=== PATIENT | male | born 1990 | race Native Hawaiian/Other Pacific Islander ===

== ENCOUNTER 2018-07-04 08:50 | Inpatient (IN) ==
[2018-07-04] MEDS ORDERED: Morphine Inj 4 MG/ML Vial IV.PUSH ONE (09:12)
--- NOTE | 2018-07-04 09:17 | ED ---
HPI General Chief complaint: Abdominal Pain Stated complaint: abd pain Time Seen by Provider: 07/04/18 09:09 Source: patient Mode of arrival: ambulatory Limitations: no limitations History of Present Illness HPI narrative: 27yo M with no PMH presents to the ED with c/o right lower abdominal pain since yesterday. Said pain was constant and gradually worsened. Pain is nonradiating and about 7 to 8 out of 10 in severity. Difficult to describe. Denies any fever, chest pain, sob, n/v, dysuria, hematuria, testicular pain, penile discharge or rash, focal weakness or numbness. Denies any history of surgery. Related Data Home Medications Medication Instructions Recorded Confirmed No Known Home Medications 07/04/18 07/04/18 Allergies Allergy/AdvReac Type Severity Reaction Status Date / Time No Known Allergies Allergy Unverified 07/04/18 09:09 Review of Systems ROS: all other systems reviewed are negative [facility] Medical History Medical History Patient denies medical problems (Acute) Surgical History Surgical History No history of previous surgery (Acute) Social History Social History Substance History: No History of Abuse Second Hand Smoke Exposure: Yes Smoking Status: Current every day smoker Tobacco Type: Cigarettes How Often Do You Have a Drink Containing Alcohol: 2 to 4 times a month Recent Travel in [facility] within the Last 8 Weeks: No Recent Out of Country Travel within the Last 8 Weeks: No Immunization History Tetanus Immunization: Unsure Hx Influenza Vaccine This Season: No Exam Narrative Exam Narrative: GENERAL: 27yo M in mild distress. SKIN: Focused skin assessment warm/dry. HEAD: Atraumatic. Normocephalic. NECK: Trachea midline. No JVD. CARDIOVASCULAR: Regular rate and rhythm. No murmur appreciated. RESPIRATORY: No accessory muscle use. Clear to auscultation. Breath sounds equal bilaterally. GASTROINTESTINAL: Abdomen soft, +TTP RLQ. No rebound tenderness or guarding. MUSCULOSKELETAL: No obvious deformities. No clubbing. No cyanosis. No edema. NEUROLOGICAL: Awake and alert. No obvious cranial nerve deficits. Motor grossly within normal limits. Normal speech. PSYCHIATRIC: Appropriate mood and affect; insight and judgment normal. Course Initial Documented Vital Signs Temperature 98.0 F 07/04/18 08:56 Pulse Rate 76 07/04/18 08:56 Respiratory Rate 20 07/04/18 08:56 Blood Pressure 139/86 07/04/18 08:56 Pulse Oximetry 99 07/04/18 08:56 Last Documented Vital Signs Temperature 98.0 F 07/04/18 08:56 Pulse Rate 76 07/04/18 08:56 Respiratory Rate 20 07/04/18 08:56 Blood Pressure 139/86 07/04/18 08:56 Pulse Oximetry 99 07/04/18 08:56 Medical Decision Making MDM Narrative Medical decision making narrative: 27yo M here with RLQ pain since yesterday. Labs reviewed, no leukocytosis. H/H normal. CMP unremarkable. UA showed WBC 1. Culture not indicated. CT a/p showed dilated fluid filled appendix as well as 9mm calcified obstructing appendicolith consistent withe appendicitis. No periappendiceal abscess is noted. Pt given morphine and pain has resolved. Pt has been NPO. Discussed with Dr. Topete who will come evaluate patient. Pt given zosyn. Medical Screen Exam Complete: Yes Emergency Medical Condition: Yes Differential Diagnosis Differential Diagnosis: Acute appendicitis vs. colitis vs. nephrolithiasis Lab Data Result diagrams: 07/04/18 09:20 07/04/18 09:20 Lab Results 07/04/18 07/04/18 07/04/18 Range/Units 09:20 09:20 09:20 WBC 9.0 (4.0-11.0) th/mm3 RBC 5.42 (4.50-5.90) mil/mm3 Hgb 15.5 (13.0-17.0) gm/dL Hct 44.3 (39.0-51.0) % MCV 81.6 (80.0-100.0) fL MCH 28.5 (27.0-34.0) pg MCHC 34.9 (32.0-36.0) % RDW 12.9 (11.6-17.2) % Plt Count 177 (150-450) th/mm3 MPV 9.6 (7.0-11.0) fL Prelim Diff (Auto) Slide review pending Neut % (Auto) 74.5 H (16.0-70.0) % Lymph % (Auto) 13.0 (9.0-44.0) % Grand % (Auto) 9.1 H (0.0-8.0) % Eos % (Auto) 3.1 (0.0-4.0) % Baso % (Auto) 0.3 (0.0-2.0) % Neut # (Auto) 6.7 (1.8-7.7) th/mm3 Lymph # (Auto) 1.2 (1.0-4.8) th/mm3 Grand # (Auto) 0.8 (0.0-0.9) th/mm3 Eos # (Auto) 0.3 (0.0-0.4) th/mm3 Baso # (Auto) 0.0 (0.0-0.2) th/mm3 WBC Differential . Diff Scan Auto diff confirmed Differential Comment . PT 11.4 (9.8-11.6) sec INR 1.1 Ratio APTT 26.7 (24.3-30.1) sec Sodium 139 (136-145) meq/L Potassium 3.8 (3.5-5.1) meq/L Chloride 104 (98-107) meq/L Carbon Dioxide 30.1 (21.0-32.0) meq/L Anion Gap 5 (5-15) meq/L BUN 11 (7-18) mg/dL Creatinine 0.93 (0.60-1.30) mg/dL Estimated GFR Greater than 89 (>89) mL/min Random Glucose 93 (74-106) mg/dL Calcium 9.2 (8.5-10.1) mg/dL Total Bilirubin 0.9 (0.2-1.0) mg/dL AST 17 (15-37) U/L ALT 26 (12-78) U/L Alkaline Phosphatase 78 (45-117) U/L Total Protein 7.7 (6.4-8.2) g/dL Albumin 4.0 (3.4-5.0) g/dL Lipase 116 (73-393) U/L Urine Color (Yellw/Straw) Urine Clarity (Clear) Urine pH (5.0-8.5) Ur Specific [place] (1.002-1.035) Urine Protein (Neg-Trace) mg/dL Urine Glucose (UA) (Negative) mg/dL Urine Ketones (Negative) mg/dL Urine Occult Blood (Negative) Urine Nitrate (Negative) Urine Bilirubin (Negative) Urine Urobilinogen (Less than 2) mg/dL Ur Leukocyte Esterase (Negative) Urine RBC (0-3) /hpf Urine WBC (0-5) /hpf Urine Bacteria (None) /hpf Urine Mucus (Occasional) /lpf Micro UA Comment Ur Microscopic Review Urine Culture Comments Blood Type Blood Type Recheck Antibody Screen 07/04/18 07/04/18 Range/Units 09:20 12:10 WBC (4.0-11.0) th/mm3 RBC (4.50-5.90) mil/mm3 Hgb (13.0-17.0) gm/dL Hct (39.0-51.0) % MCV (80.0-100.0) fL MCH (27.0-34.0) pg MCHC (32.0-36.0) % RDW (11.6-17.2) % Plt Count (150-450) th/mm3 MPV (7.0-11.0) fL Prelim Diff (Auto) Neut % (Auto) (16.0-70.0) % Lymph % (Auto) (9.0-44.0) % Grand % (Auto) (0.0-8.0) % Eos % (Auto) (0.0-4.0) % Baso % (Auto) (0.0-2.0) % Neut # (Auto) (1.8-7.7) th/mm3 Lymph # (Auto) (1.0-4.8) th/mm3 Grand # (Auto) (0.0-0.9) th/mm3 Eos # (Auto) (0.0-0.4) th/mm3 Baso # (Auto) (0.0-0.2) th/mm3 WBC Differential Diff Scan Differential Comment PT (9.8-11.6) sec INR Ratio APTT (24.3-30.1) sec Sodium (136-145) meq/L Potassium (3.5-5.1) meq/L Chloride (98-107) meq/L Carbon Dioxide (21.0-32.0) meq/L Anion Gap (5-15) meq/L BUN (7-18) mg/dL Creatinine (0.60-1.30) mg/dL Estimated GFR (>89) mL/min Random Glucose (74-106) mg/dL Calcium (8.5-10.1) mg/dL Total Bilirubin (0.2-1.0) mg/dL AST (15-37) U/L ALT (12-78) U/L Alkaline Phosphatase (45-117) U/L Total Protein (6.4-8.2) g/dL Albumin (3.4-5.0) g/dL Lipase (73-393) U/L Urine Color Yellow (Yellw/Straw) Urine Clarity Clear (Clear) Urine pH 5.0 (5.0-8.5) Ur Specific [place] 1.018 (1.002-1.035) Urine Protein Negative (Neg-Trace) mg/dL Urine Glucose (UA) Negative (Negative) mg/dL Urine Ketones Negative (Negative) mg/dL Urine Occult Blood Negative (Negative) Urine Nitrate Negative (Negative) Urine Bilirubin Negative (Negative) Urine Urobilinogen Less than 2 (Less than 2) mg/dL Ur Leukocyte Esterase Negative (Negative) Urine RBC Less than 1 (0-3) /hpf Urine WBC 1 (0-5) /hpf Urine Bacteria Occasional H (None) /hpf Urine Mucus Moderate H (Occasional) /lpf Micro UA Comment Culture not ind Ur Microscopic Review Not Reportable Urine Culture Comments Culture not ind Blood Type O Positive Blood Type Recheck Required Antibody Screen Negative Imaging Data Radiologist's impression: Abdomen/Pelvis CT 07/04/18 09:12 CONCLUSION: 1. Dilated fluid-filled appendix as well as 9 mm calcified obstructing appendicolith consistent with acute appendicitis. No periappendiceal abscess is noted. 2. Minimal free fluid within the pelvis. 3. Mild splenomegaly. Discharge Plan Discharge Disposition Patient Disposition: 30 Still Patient Discharge Details Diagnosis: Acute appendicitis Physicians Team ED Provider: Eliza Kinney Primary Care Provider: UNKNOWN, Attending Provider: Lawson Topete Other Providers: Lawson Topete Discharge Interventions Interventions: ED Discharge Assessment Last Done: 07/04/18 14:22 Status ED Status: Left Department Discharge Information Discharge Date/Time: 07/04/18 14:23
[2018-07-04 09:34] LABS: Baso % (Auto) 0.3 % (0.0-2.0); Eos # (Auto) 0.3 th/mm3 (0.0-0.4); Eos % (Auto) 3.1 % (0.0-4.0); Hematocrit 44.3 % (39.0-51.0); Hemoglobin 15.5 gm/dL (13.0-17.0); Lymph # (Auto) 1.2 th/mm3 (1.0-4.8); Mean Corpuscular HGB Conc 34.9 % (32.0-36.0); Mean Corpuscular Hemoglobin 28.5 pg (27.0-34.0); Mean Corpuscular Volume 81.6 fL (80.0-100.0); Mean Platelet Volume 9.6 fL (7.0-11.0); Mono # (Auto) 0.8 th/mm3 (0.0-0.9); Mono % (Auto) 9.1 % (0.0-8.0); Neut # (Auto) 6.7 th/mm3 (1.8-7.7); Neut % (Auto) 74.5 % (16.0-70.0); Platelet Count 177 th/mm3 (150-450); Red Blood Count 5.42 mil/mm3 (4.50-5.90); Red Cell Distribution Width 12.9 % (11.6-17.2)
[2018-07-04 09:46] LABS: Activated Partial Thrombo Time 26.7 sec (24.3-30.1); Bacteria,Urine Occasional /hpf; Bilirubin,Urine Negative (Negative); Clarity,Urine Clear (Clear); Color,Urine Yellow (Yellw/Straw); Glucose,Urine (UA) Negative (Negative); INR 1.1 Ratio; Leukocyte Esterase,Urine Negative (Negative); Mucus,Urine Moderate /lpf (Occasional); Nitrite,Urine Negative (Negative); Prothrombin Time 11.4 sec (9.8-11.6); Specific Gravity,Urine 1.018 (1.002-1.035)
[2018-07-04 09:49] LABS: Anion Gap 5 meq/L (5-15); Aspartate Aminotransferase 17 U/L (15-37); Blood Urea Nitrogen 11 mg/dL (7-18); Calcium 9.2 mg/dL (8.5-10.1); Carbon Dioxide 30.1 meq/L (21.0-32.0); Chloride 104 meq/L (98-107); Glomerular Filtration Rate Greater Than 89 mL/min (>89); Glucose,Random 93 mg/dL (74-106); Lipase 116 U/L (73-393); Potassium 3.8 meq/L (3.5-5.1); Sodium 139 meq/L (136-145)
[2018-07-04 09:50] LABS: Alanine Aminotransferase 26 U/L (12-78)
[2018-07-04 09:53] LABS: Alkaline Phosphatase 78 U/L (45-117); Total Protein 7.7 g/dL (6.4-8.2)
--- NOTE | 2018-07-04 10:59 | CT ---
EXAM DATE: 07/04/2018 10:16 AM EDT AGE/SEX: 27 years / Male INDICATIONS: Patient complains of diffuse abdominal pain. CLINICAL DATA: This is the patient's initial encounter. Patient reports that signs and symptoms have been present for 1 day and indicates a pain score of 6/10. MEDICAL/SURGICAL HISTORY: None. None. ORAL CONTRAST: No oral contrast ingested. RADIATION DOSE: 4.58 CTDI (mGy) COMPARISON: No prior exams available for comparison. TECHNIQUE: Multiple contiguous axial images were obtained through the abdomen and pelvis following b olus infusion of 95 ml Omnipaque 350 (iohexol) nonionic water-soluble contrast as a single exam dos e. No oral contrast ingested. Using automated exposure control and adjustment of the mA and/or kV ac cording to patient size, radiation dose was kept as low as reasonably achievable to obtain optimal di agnostic quality images. DICOM format image data is available electronically for review and comparis on. FINDINGS: Lower Lungs: The visualized lower lungs are clear. Liver: The liver has a homogeneous density without space-occupying lesion. There is no dilation of th e biliary tree. Spleen: Mild splenomegaly is noted. Pancreas: Unremarkable without mass or calcification. Kidneys: Normal in size and shape. No evidence of mass or hydronephrosis. Adrenal Glands: Unremarkable. Aorta: The aorta and proximal iliac vessels are grossly unremarkable without aneurysmal dilation. Bowel/Mesentery: There is evidence of acute appendicitis. There is a dilated fluid-filled appendix a s well as a 9 mm calcified obstructing appendicolith. No periappendiceal abscess is noted. Minimal fr ee fluid is noted within the pelvis. Abdominal Wall: Intact. Retroperitoneum: No evidence of adenopathy in the retrocrural, para-aortic, or deep pelvic regions. Bladder: Contours are smooth. Reproductive Organs: No abnormal masses or calcifications seen. Inguinal: The inguinal region is unremarkable without evidence of adenopathy. Bony Structures: Unremarkable. CONCLUSION: 1. Dilated fluid-filled appendix as well as 9 mm calcified obstructing appendicolith consistent with acute appendicitis. No periappendiceal abscess is noted. 2. Minimal free fluid within the pelvis. 3. Mild splenomegaly. Electronically signed by: Parag Roldan MD 07/04/2018 10:58 AM EDT
[2018-07-04] MEDS ORDERED: Piperacil/Tazo 4.5 GM Premix 4.5 GM/100 ML BAG IV.SIG ONE (11:08)
[2018-07-04] MEDS: Sod Chloride 0.9% Inj 1,000 ML IV.CONT SCH ×2 (14:45→21:44)
[2018-07-04] MEDS: Morphine Sulfate Inj 2 MG/ML Vial IV.PUSH PRN ×2 (14:57→23:44)
[2018-07-04] MEDS ORDERED: Bupivacaine/Epinephrine Inj 0.25% 50 ML Vial ONE (16:34)
--- NOTE | 2018-07-04 17:19 | P.HP ---
History of Present Illness Primary Care Physician: UNKNOWN History of Present Illness: Patient is a 27-year-old male who began to have periumbilical pain yesterday that became worse this morning and localized to the right lower quadrant. The patient has anorexia but no emesis and no change in bowel habits. - Diagnosis (1) Acute appendicitis Inpatient Certification: I certify that the inpatient services were ordered in accordance with Medicare regulations governing the order. This includes certification that hospital inpatient services are reasonable and necessary and in the case of services not specified as inpatient-only under 42 CFR 419.22(n), that they are appropriately provided as inpatient services in accordance to with the 2-midnight benchmark under 43 CFR 412.3(e) Plans for Post Hospital Care: Home Review of Systems All other systems reviewed negative except as stated in HPI PMFSH - History History Provided By: Patient - Medical History Medical History: Medical History (Last Updated 07/04/18 @ 09:10 by Eva Us) Patient denies medical problems - Surgical History Surgical History: Surgical History (Last Updated 07/04/18 @ 09:10 by Eva Us) No history of previous surgery - Tobacco History Second Hand Smoke Exposure: Yes Tobacco Use In Past 30 Days: Yes Smoking Status: Current every day smoker Tobacco Type: Cigarettes - Alcohol History How Often Do You Have a Drink Containing Alcohol: 2 to 4 times a month - Substance Use History Substance History: No History of Abuse - Travel History Recent Travel in the [place] Within the Last 8 Weeks: No Recent Travel Out of the Country Within the Last 8 Weeks: No - Immunization History Tetanus Immunization: Unsure Hx Influenza Vaccine This Season: No Medications and Allergies Active Medications: Active Medications Sodium Chloride (Ns Inj) 1,000 mls @ 125 mls/hr IV.CONT .Q8H KUMAR Last Admin: 07/04/18 14:45 Dose: 125 mls/hr Morphine Sulfate (Morphine Inj) 2 mg IV.PUSH Q3H PRN PRN Reason: PAIN 1-10 Last Admin: 07/04/18 14:57 Dose: 2 mg Sodium Chloride (Ns Flush) 2 ml IV.FLUSH PRN PRN PRN Reason: FLUSH AFTER USING IV ACCESS Last Admin: 07/04/18 14:59 Dose: 2 ml Allergies Allergy/AdvReac Type Severity Reaction Status Date / Time No Known Allergies Allergy Unverified 10/01/18 09:09 Home Medications Medication Instructions Recorded Confirmed Type No Known Home Medications 07/04/18 07/04/18 History Exam Vital signs: Vital Signs 07/04/18 08:56 07/04/18 14:59 07/04/18 16:00 Temperature 98.0 F 97.9 F Pulse Rate 76 76 Respiratory Rate 20 17 19 Blood Pressure 139/86 112/58 L Pulse Oximetry 99 98 Intake & Output 07/03/18 07/04/18 07/04/18 18:59 06:59 18:59 Intake Total 100 / 100 Balance 100 / 100 Weight 53.1 kg Intake: IV 100 / 100 Zosyn 4.5 GM Premix 4.5 gm In 100 / 100 100 ml @ 200 mls/hr IV.SIG ONCE ONE Rx#:[id number] Other: Date of Last Bowel Movement 07/03/18 Weight On Admission 85 kg - Constitutional no acute distress - Routine HEENT Exam Head: Present: normocephalic, atraumatic - Routine Respiratory Exam Present: CTA bilaterally - Routine Cardiovascular Exam Present: RRR - Routine Abdominal Exam Present: soft, tenderness (Right lower quadrant with some guarding), guarding - Routine Neurological Exam Present: alert, oriented X3, CN II-XII intact Results - Labs CBC & Chem 7: 07/04/18 09:20 07/04/18 09:20 Labs: Laboratory Results - last 24 hr 07/04/18 07/04/18 07/04/18 09:20 09:20 09:20 WBC 9.0 RBC 5.42 Hgb 15.5 Hct 44.3 MCV 81.6 MCH 28.5 MCHC 34.9 RDW 12.9 Plt Count 177 MPV 9.6 Prelim Diff (Auto) Slide review pending Neut % (Auto) 74.5 H Lymph % (Auto) 13.0 [place] % (Auto) 9.1 H Eos % (Auto) 3.1 Baso % (Auto) 0.3 Neut # (Auto) 6.7 Lymph # (Auto) 1.2 [place] # (Auto) 0.8 Eos # (Auto) 0.3 Baso # (Auto) 0.0 WBC Differential . Diff Scan Auto diff confirmed Differential Comment . PT 11.4 INR 1.1 APTT 26.7 Sodium 139 Potassium 3.8 Chloride 104 Carbon Dioxide 30.1 Anion Gap 5 BUN 11 Creatinine 0.93 Estimated GFR Greater than 89 Random Glucose 93 Calcium 9.2 Total Bilirubin 0.9 AST 17 ALT 26 Alkaline Phosphatase 78 Total Protein 7.7 Albumin 4.0 Lipase 116 Urine Color Urine Clarity Urine pH Ur Specific [place] Urine Protein Urine Glucose (UA) Urine Ketones Urine Occult Blood Urine Nitrate Urine Bilirubin Urine Urobilinogen Ur Leukocyte Esterase Urine RBC Urine WBC Urine Bacteria Urine Mucus Micro UA Comment Ur Microscopic Review Urine Culture Comments Blood Type Blood Type Recheck Antibody Screen 07/04/18 07/04/18 09:20 12:10 WBC RBC Hgb Hct MCV MCH MCHC RDW Plt Count MPV Prelim Diff (Auto) Neut % (Auto) Lymph % (Auto) [place] % (Auto) Eos % (Auto) Baso % (Auto) Neut # (Auto) Lymph # (Auto) [place] # (Auto) Eos # (Auto) Baso # (Auto) WBC Differential Diff Scan Differential Comment PT INR APTT Sodium Potassium Chloride Carbon Dioxide Anion Gap BUN Creatinine Estimated GFR Random Glucose Calcium Total Bilirubin AST ALT Alkaline Phosphatase Total Protein Albumin Lipase Urine Color Yellow Urine Clarity Clear Urine pH 5.0 Ur Specific [place] 1.018 Urine Protein Negative Urine Glucose (UA) Negative Urine Ketones Negative Urine Occult Blood Negative Urine Nitrate Negative Urine Bilirubin Negative Urine Urobilinogen Less than 2 Ur Leukocyte Esterase Negative Urine RBC Less than 1 Urine WBC 1 Urine Bacteria Occasional H Urine Mucus Moderate H Micro UA Comment Culture not ind Ur Microscopic Review Not Reportable Urine Culture Comments Culture not ind Blood Type O Positive Blood Type Recheck Required Antibody Screen Negative - Imaging Impressions Abdomen/Pelvis CT 07/04/18 09:12 CONCLUSION: 1. Dilated fluid-filled appendix as well as 9 mm calcified obstructing appendicolith consistent with acute appendicitis. No periappendiceal abscess is noted. 2. Minimal free fluid within the pelvis. 3. Mild splenomegaly. Caprini VTE Risk Assessment Caprini VTE Risk Assessment: No/Low Risk (score <= 1) Caprini Risk Assessment Model: Point Value = 1 Point Value = 2 Point Value = 3 Point Value = 5 Age 41-60 Minor surgery BMI > 25 kg/m2 Swollen legs Varicose veins or History of unexplained or recurrent spontaneous Oral contraceptives or hormone replacement Sepsis (< 1 month) Serious lung disease, including pneumonia (< 1 month) Abnormal pulmonary function Acute myocardial infarction Congestive heart failure (< 1 month) History of inflammatory bowel disease Medical patient at bed rest Age 61-74 Arthroscopic surgery Major open surgery (> 45 min) Laparoscopic surgery (> 45 min) Malignancy Confined to bed (> 72 hours) Immobilizing plaster cast Central venous access Age >= 75 History of VTE Family history of VTE Factor V Leiden Prothrombin [id number] Lupus anticoagulant Anticardiolipin antibodies Elevated serum homocysteine Heparin-induced thrombocytopenia Other congenital or acquired thrombophilia Stroke (< 1 month) Elective arthroplasty Hip, pelvis, or leg fracture Acute spinal cord injury (< 1 month) Prophylaxis Regimen: Total Risk Factor Score Risk Level Prophylaxis Regimen 0-1 Low Early ambulation 2 Moderate Order ONE of the following: *Sequential Compression Device (SCD) *Heparin 5000 units SQ BID 3-4 Higher Order ONE of the following medications: *Heparin 5000 units SQ TID *Enoxaparin/Lovenox 40 mg SQ daily (WT < 150 kg, CrCl > 30 mL/min) *Enoxaparin/Lovenox 30 mg SQ daily (WT < 150 kg, CrCl > 10-29 mL/min) *Enoxaparin/Lovenox 30 mg SQ BID (WT < 150 kg, CrCl > 30 mL/min) AND/OR *Sequential Compression Device (SCD) 5 or more Highest Order ONE of the following medications: *Heparin 5000 units SQ TID (Preferred with Epidurals) *Enoxaparin/Lovenox 40 mg SQ daily (WT < 150 kg, CrCl > 30 mL/min) *Enoxaparin/Lovenox 30 mg SQ daily (WT < 150 kg, CrCl > 10-29 mL/min) *Enoxaparin/Lovenox 30 mg SQ BID (WT < 150 kg, CrCl > 30 mL/min) AND *Sequential Compression Device (SCD) Assessment and Plan - Assessment (1) Acute appendicitis Code(s): K35.80 - Unspecified acute appendicitis Status: Acute Plan: Laparoscopic appendectomy possible open appendectomy. I discussed risks of the procedure with the patient and his friend, including but not limited to: Bleeding, infection, need for drainage, need for reoperation, leakage. Also minimal risk of adhesion formation long-term. I discussed remedies consequences alternatives and convalescence; he vocalizes understanding agrees to proceed. We will proceed with surgery as soon as an operating room is available. - Plan Discussed Condition With: Patient Nurse - Attending Attestation I attest that I had a [id number] encounter with the patient on the same day, and personally performed and documented my assessment and findings in the medical record. The following services were provided during this hospital visit: Chart data review, vital sign assessments/reviewing monitor data Review of consultation notes if present Medication orders/review and/or management Ordering and/or reviewing lab tests Ordering and/or interpreting/reviewing x-rays and/or diagnostic studies Care of the patient and discussion of the patient with the care team Documentation time To help prompt me to consider important information that might be impacting today's encounter and assessment, Information from prior notes written by myself or my colleagues may have been "brought forward/copy and pasted" into today's note. (1) Acute appendicitis Qualifiers: Acute appendicitis type: other Qualified Code(s): K35.890 - Other acute appendicitis without perforation or gangrene; K35.89 - Other acute appendicitis
[2018-07-04] MEDS ORDERED: Lidocaine PF 1% Inj 5 ML Syringe OTHER ONE (17:30)
[2018-07-04] MEDS ORDERED: Piperacil/Tazo 3.375 GM Premix 50 ML IV.SIG ONE (17:30)
[2018-07-04] MEDS ORDERED: Phenylephrine/NS 1000 MCG/10ML Syringe IV.PUSH ONE (17:30)
[2018-07-04] MEDS ORDERED: *Meperidine Inj 25 MG/ML Vial PERIprocedural Use ONLY ONE (18:53)
[2018-07-04] MEDS ORDERED: Morphine Inj 4 MG/ML Vial ONE (19:11)
[2018-07-04] MEDS ORDERED: fentaNYL Citrate Inj 100 MCG/2 ML Ampul ONE (19:11)
--- NOTE | 2018-07-04 19:14 | P.OP ---
Date of procedure: 07/04/18 Procedure: Laparoscopic appendectomy Anesthesia: CRICKET Surgeon: Lawson Topete MD Securities Consultant: Litzy Arriaza MS 3 Estimated blood loss (mL): 10 IV fluids (mL): 1,200 Pathology: other (Appendix to pathology) Operation and Findings: Patient was taken to the operating room and placed on the operating table in the supine position. After an adequate level of general endotracheal anesthesia was achieved, the abdomen was prepped and draped in usual fashion. Timeout was taken, confirming the correct patient, site, and procedure to be performed. Skin and subcutaneous tissue was infiltrated with local anesthetic and incision made in the umbilicus and carried through the fascia sharply. The peritoneal cavity was directly visualized. A 12 mm balloon trocar was inserted and the balloon inflated. The abdomen was insufflated. The patient was placed in Trendelenburg position. 2 5 mm trochars were placed, with the first in the right lower quadrant and the second in the suprapubic region. Both entered the abdominal cavity under direct vision uneventfully. The appendix was noted to be in a slightly retrocecal position and this was mobilized utilizing the harmonic scalpel. Dissection was carried out with the mesoappendix divided with the harmonic scalpel. Dissection was carried back to the base of the appendix, at which point a 0 PDS Endoloop was slipped over the appendix and cinched down at the base. The appendix was divided 1 cm distal to this with the harmonic scalpel and placed into an Endo Catch device. While observing via the right lower quadrant 5 mm trocar site, the appendix was removed via the umbilical port and passed off the table. The appendiceal stump and mesoappendix were reexamined and irrigated. All irrigation was aspirated. The appendiceal stump and mesoappendix were seen to be clean and dry. A small amount of pelvic fluid was also irrigated and aspirated. With hemostasis assured, insufflation was discontinued and the 5 mm trocars were removed under direct vision. No bleeding was noted from the trocar sites during desufflation. The laparoscope and umbilical port were removed. The fascia was closed in the umbilicus with simple interrupted and [id number] 0 Vicryl suture. The remaining local anesthetic was injected into each of the trocar sites. The skin was closed at each of the trocar sites with 4-0 Vicryl in an interrupted buried fashion. Sponge and needle counts were reported to be correct. The wounds were dressed with Steri-Strips. The patient was extubated and taken back to the recovery room in stable condition.
[2018-07-04] MEDS ORDERED: Sugammadex Inj 200 MG/2 ML Vial IV.PUSH ONE (19:46)
[2018-07-05] MEDS: Morphine Sulfate Inj 2 MG/ML Vial IV.PUSH PRN ×2 (02:34→05:48)
[2018-07-05 04:47] VITALS: RESP 16
[2018-07-05] MEDS: Sod Chloride 0.9% Inj 1,000 ML IV.CONT SCH (05:49)
--- NOTE | 2018-07-05 07:39 | P.PNSTU ---
Subjective - Remarks 27 year old male who is in the ER wednesday morning with complaints of abdominal pain that began Wednesday moring when he woke up. He says the pain wasn't bad on Wednesday so he went through the day tolerating it. He went to bed that night but was awoken at 3:30am with sharp pains in his umbilical area that kept him up until 7am when he decided to come to the ER. He describes the pain as sharp and constant that hurts more when he moves his legs and feels better when he is lying down. He endorses nausea and lack of appetite but denies any vomiting or diarrhea. Currently, he is feeling better likely due to the morphine given, with some slight pain around his umbilicus. He has no medical conditions and doesn't take any medications. He has never had any surgery before. Objective Vital Signs: Vital Signs 07/04/18 08:56 07/04/18 14:59 07/04/18 16:00 Temperature 98.0 F 97.9 F Pulse Rate 76 76 Respiratory Rate 20 17 19 Blood Pressure 139/86 112/58 L Pulse Oximetry 99 98 07/04/18 17:15 07/04/18 18:40 07/04/18 19:00 Temperature 97.8 F 98.3 F Pulse Rate 70 100 H 90 Respiratory Rate 16 18 18 Blood Pressure 106/54 L 128/67 113/57 L Pulse Oximetry 96 99 99 07/04/18 19:15 07/04/18 19:20 07/05/18 01:26 Temperature 98.3 F 98.7 F Pulse Rate 85 85 52 L Respiratory Rate 18 18 15 Blood Pressure 110/57 L 110/57 L 109/55 L Pulse Oximetry 99 99 100 07/05/18 04:46 Temperature 97.9 F Pulse Rate 64 Respiratory Rate 16 Blood Pressure 110/64 Pulse Oximetry Intake & Output 07/04/18 07/05/18 07/05/18 18:59 06:59 18:59 Intake Total 1350 / 1350 1999 Output Total 425 / 425 Balance 1340 / 1340 1575 / 1575 Weight 53.1 kg 56.2 kg Intake: IV 150 / 150 1999 NS Inj 1,000 ML @ 125 mls/hr IV 1999 .CONT .Q8H [facility] Rx#:[id number] Zosyn 3.375 GM Premix 50 ML @ 50 / 50 100 mls/hr IV.SIG ONCE ONE Rx#: [id number] Zosyn 4.5 GM Premix 4.5 gm In 100 / 100 100 ml @ 200 mls/hr IV.SIG ONCE ONE Rx#:[id number] Oral 0 / 0 Anesthesia Amount 1200 / 1200 Output: Urine 425 / 425 Estimated Blood Loss Other: # Voids 0 Date of Last Bowel Movement 07/03/18 Weight On Admission 85 kg Result Diagrams: 07/04/18 09:20 07/04/18 09:20 Imaging: Impressions Abdomen/Pelvis CT 07/04/18 09:12 CONCLUSION: 1. Dilated fluid-filled appendix as well as 9 mm calcified obstructing appendicolith consistent with acute appendicitis. No periappendiceal abscess is noted. 2. Minimal free fluid within the pelvis. 3. Mild splenomegaly. Medications and IVs: Active Medications Hydrocodone Bitart/Acetaminophen ([place] 7.5/325) 1 tab PO Q4H PRN PRN Reason: SEE LABEL COMMENTS Sodium Chloride (Ns Inj) 1,000 mls @ 125 mls/hr IV.CONT .Q8H [facility] Last Admin: 07/05/18 05:49 Dose: 125 mls/hr Miscellaneous Information ([facility] [place] [facility]) 1 each OTHER UNSCH PRN PRN Reason: SEE LABEL COMMENTS Stop: 07/05/18 19:29 Morphine Sulfate (Morphine Inj) 2 mg IV.PUSH Q3H PRN PRN Reason: PAIN 1-10 Last Admin: 07/05/18 05:48 Dose: 2 mg Sodium Chloride (Ns Flush) 2 ml IV.FLUSH PRN PRN PRN Reason: FLUSH AFTER USING IV ACCESS Last Admin: 07/04/18 14:59 Dose: 2 ml Objective Remarks: General: well-appearing male, resting comfortably in bed. Cardio: RRR Pulmonary: no shortness of breath or use of accessory muscles. Abdomen: tender to palpation in the umbilical area and RLQ. Assessment and Plan Assessment and Plan: 27 year old male presenting with abdominal pain and imaging suggestive of acute appendicitis. Discharge Planning: He will be taken to the operating room and have his appendix removed laparoscopically.
[2018-07-05 12:23] VITALS: BP 100/59; PULSE 68; TEMP 97.9; O2SAT 94
--- NOTE | 2018-07-05 13:20 | P.DS ---
Date of admission: 07/04/18 11:28 Primary care physician: UNKNOWN Attending physician on discharge: Lawson Topete Anticipated date of discharge: 07/05/18 Brief History from admission: Patient is a 27-year-old male who began to have periumbilical pain yesterday that became worse this morning and localized to the right lower quadrant. The patient has anorexia but no emesis and no change in bowel habits. DS: Diagnosis - Discharge Diagnosis (1) Acute appendicitis Status: Acute DS: Medications - Discharge Medications Prescriptions: hydrocodone-acetaminophen [[place]] 1 tab PO Q4H PRN #24 tab PRN Reason: Acute Pain DS: Summary Hospital Course: 27 year old male POD1 laparoscopic appendectomy. - Time Spent with Patient Total time spent providing and/or coordinating discharge services: Less than 30 minutes - Quality: VTE Deep Vein Thrombosis/Pulmonary Embolism Present on Admission: No Exam Vital signs: Vital Signs 07/04/18 14:59 07/04/18 16:00 07/04/18 17:15 Temperature 97.9 F 97.8 F Pulse Rate 76 70 Respiratory Rate 17 19 16 Blood Pressure 112/58 L 106/54 L Pulse Oximetry 98 96 07/04/18 18:40 07/04/18 19:00 07/04/18 19:15 Temperature 98.3 F Pulse Rate 100 H 90 85 Respiratory Rate 18 18 18 Blood Pressure 128/67 113/57 L 110/57 L Pulse Oximetry 99 99 99 07/04/18 19:20 07/05/18 01:26 07/05/18 04:46 Temperature 98.3 F 98.7 F 97.9 F Pulse Rate 85 52 L 64 Respiratory Rate 18 15 16 Blood Pressure 110/57 L 109/55 L 110/64 Pulse Oximetry 99 100 07/05/18 07:55 07/05/18 12:00 Temperature 98.4 F 97.9 F Pulse Rate 67 68 Respiratory Rate 16 16 Blood Pressure 103/54 L 100/59 L Pulse Oximetry 96 94 L Intake & Output 07/04/18 07/05/18 07/05/18 18:59 06:59 18:59 Intake Total 1350 / 1350 1999 Output Total 425 / 425 Balance 1340 / 1340 1575 / 1575 Weight 53.1 kg 56.2 kg Intake: IV 150 / 150 1999 NS Inj 1,000 ML @ 125 mls/hr IV 1999 .CONT .Q8H [facility] Rx#:[id number] Zosyn 3.375 GM Premix 50 ML @ 50 / 50 100 mls/hr IV.SIG ONCE ONE Rx#: [id number] Zosyn 4.5 GM Premix 4.5 gm In 100 / 100 100 ml @ 200 mls/hr IV.SIG ONCE ONE Rx#:[id number] Oral 0 / 0 Anesthesia Amount 1200 / 1200 Output: Urine 425 / 425 Estimated Blood Loss Other: # Voids 0 Date of Last Bowel Movement 07/03/18 07/03/18 Weight On Admission 85 kg Narrative: Alert and awake Abd: soft; minimally tender; lap sites c/d/i Results Procedures completed during hospitalization: laparoscopic appendectomy Pending studies at discharge: Pending at discharge 07/04/18 07:26 Surgical [PTH] Routine - Impressions ITS Impressions Abdomen/Pelvis CT 07/04/18 09:12 CONCLUSION: 1. Dilated fluid-filled appendix as well as 9 mm calcified obstructing appendicolith consistent with acute appendicitis. No periappendiceal abscess is noted. 2. Minimal free fluid within the pelvis. 3. Mild splenomegaly. Discharge Plan - Discharge Disposition Patient Disposition: Discharge Home - Discharge Condition Condition: Good - Discharge Order Discharge Orders: Discharge Order (Routine); Ordered 07/05/18 Ordered By: Kadi Zheng - Discharge Details Anticipated Discharge Date: 07/05/18 Discharge Comment: rx on chart - Physicians Team Primary Care Provider: UNKNOWN, Attending Provider: Lawson Topete Other Providers: Lawson Topete MD ; L3,Insurance
== END 2018-07-05 15:09 | disposition home or self-care (01) ==
LOC: NEPD 08:50 → NEDA 11:28 → N07 14:25
PROVIDERS: ADMIT Surgery Trauma Surgery; ATTEND Surgery Trauma Surgery